=== PATIENT | male | born 1945 | race Caucasian/White ===

== ENCOUNTER 2020-01-23 10:46 | Outpatient (CLI) | payer MEDICARE | END 2020-01-23 13:42 | disposition home or self-care (01) | LOC: WOUND CARE 10:46 → EDSTATUS 11:00 → WOUND CARE 13:42 | PROVIDERS: ATTEND Nurse Practitioner | DX: I87.313 Chronic venous hypertension (idiopathic) with ulcer of bilateral lower extremity (principal); L97.812 Non-pressure chronic ulcer of other part of right lower leg with fat layer exposed; L97.821 Non-pressure chronic ulcer of other part of left lower leg limited to breakdown of skin; E11.319 Type 2 diabetes mellitus with unspecified diabetic retinopathy without macular edema; E11.36 Type 2 diabetes mellitus with diabetic cataract; G93.41 Metabolic encephalopathy; H26.9 Unspecified cataract; E03.9 Hypothyroidism, unspecified; M10.9 Gout, unspecified; M19.90 Unspecified osteoarthritis, unspecified site; I87.2 Venous insufficiency (chronic) (peripheral); F32.9 Major depressive disorder, single episode, unspecified; F41.9 Anxiety disorder, unspecified | CPT/HCPCS: 29580; G0463 ==

== ENCOUNTER 2020-01-31 09:15 | Outpatient (CLI) | payer MEDICARE ==
[2020-01-31] MEDS ORDERED: LIDOcaine 2% 5ml jelly ONE (09:45)
== END 2020-01-31 11:29 | disposition home or self-care (01) ==
LOC: WOUND CARE 09:15 → EDSTATUS 09:20 → WOUND CARE 11:29
PROVIDERS: ATTEND Nurse Practitioner
DX: I87.313 Chronic venous hypertension (idiopathic) with ulcer of bilateral lower extremity (principal); L97.812 Non-pressure chronic ulcer of other part of right lower leg with fat layer exposed; L97.821 Non-pressure chronic ulcer of other part of left lower leg limited to breakdown of skin; E11.319 Type 2 diabetes mellitus with unspecified diabetic retinopathy without macular edema; G93.41 Metabolic encephalopathy; H26.9 Unspecified cataract; E03.9 Hypothyroidism, unspecified; M10.9 Gout, unspecified; M19.90 Unspecified osteoarthritis, unspecified site; I87.2 Venous insufficiency (chronic) (peripheral); F32.9 Major depressive disorder, single episode, unspecified; F41.9 Anxiety disorder, unspecified
CPT/HCPCS: 93970; 97597

== ENCOUNTER 2020-02-06 09:42 | Outpatient (CLI) | payer MEDICARE | END 2020-02-06 11:21 | disposition home or self-care (01) | LOC: WOUND CARE 09:42 | PROVIDERS: ATTEND Nurse Practitioner Family | DX: I87.313 Chronic venous hypertension (idiopathic) with ulcer of bilateral lower extremity (principal); L97.812 Non-pressure chronic ulcer of other part of right lower leg with fat layer exposed; L97.821 Non-pressure chronic ulcer of other part of left lower leg limited to breakdown of skin; E11.319 Type 2 diabetes mellitus with unspecified diabetic retinopathy without macular edema; G93.41 Metabolic encephalopathy; E03.9 Hypothyroidism, unspecified; M10.9 Gout, unspecified; M19.90 Unspecified osteoarthritis, unspecified site; I87.2 Venous insufficiency (chronic) (peripheral); F32.9 Major depressive disorder, single episode, unspecified; F41.9 Anxiety disorder, unspecified | CPT/HCPCS: 93922; G0463 ==

== ENCOUNTER 2020-02-13 09:42 | Day surgery (SDC) | payer MEDICARE | END 2020-02-13 12:56 | disposition home or self-care (01) | LOC: WOUND CARE 09:42 | PROVIDERS: ATTEND Nurse Practitioner Family | DX: I87.313 Chronic venous hypertension (idiopathic) with ulcer of bilateral lower extremity (principal); L97.812 Non-pressure chronic ulcer of other part of right lower leg with fat layer exposed; L97.821 Non-pressure chronic ulcer of other part of left lower leg limited to breakdown of skin; E11.319 Type 2 diabetes mellitus with unspecified diabetic retinopathy without macular edema; E11.36 Type 2 diabetes mellitus with diabetic cataract; G93.41 Metabolic encephalopathy; H26.9 Unspecified cataract; E03.9 Hypothyroidism, unspecified; M10.9 Gout, unspecified; M19.90 Unspecified osteoarthritis, unspecified site; I87.2 Venous insufficiency (chronic) (peripheral); F32.9 Major depressive disorder, single episode, unspecified; F41.9 Anxiety disorder, unspecified | CPT/HCPCS: G0463 ==

== ENCOUNTER 2020-04-11 09:48 | Outpatient (CLI) | payer MEDICARE | END 2020-04-11 23:59 | disposition home or self-care (01) | LOC: RAD 09:48 | PROVIDERS: ATTEND General Practice | DX: R59.0 Localized enlarged lymph nodes (principal) | CPT/HCPCS: 76881 ==

== ENCOUNTER 2020-10-12 10:07 | Outpatient (CLI) | payer MEDICARE ==
[~2020-10-12 10:07] MED LIST: 5HYD200C PEG; ASCO-139 PO; ASPI-1264 PO; CARI-433 PO; CHOL10006 PO; DOCU250C96 PO; FLO0.4C PO; FURO40TA4 PO; LACT1CAP75 PO; LEVO50TA8 PO; MELA10TA2 PO; METH-603 PO; SENN-263 PO; VITA-268 PO; ZINC50TA67 PO
== END 2020-10-12 23:59 | disposition home or self-care (01) ==
LOC: RAD 10:07
DX: R33.9 Retention of urine, unspecified (principal)
CPT/HCPCS: 76775

== ENCOUNTER 2021-05-23 13:53 | Inpatient (IN) | payer MEDICARE ==
[~2021-05-23] VITALS: Ht 182.9 cm; Wt 89.1 kg
[~2021-05-23 13:53] MED LIST changes: -ASPI-1264 PO
[2021-05-23] MEDS ORDERED: ondansetron/PF 4mg/2ml inj IV ONE (23:40)
[2021-05-24 01:16] LABS: HEMOGLOBIN 11.7 g/dl (14.0-17.9); MEAN PLATELET VOLUME 9.2 FL (7.4-10.4); PLATELET COUNT 208 X10'3 (140-440); RED CELL DISTRIBUTION WIDTH 14.6 % (11.5-14.5)
[2021-05-24 01:19] LABS: BASOPHILS % (AUTO) 0.7 % (0-1); EOSINOPHILS # (AUTO) 0.2 X10'3 (0-0.9); EOSINOPHILS % (AUTO) 2.1 % (0-6); HEMATOCRIT 34.4 % (42.0-52.0); LYMPHOCYTES # (AUTO) 0.9 X10'3 (1.1-4.8); LYMPHOCYTES % (AUTO) 12.4 % (21-51); MEAN CORPUSCULAR HEMOGLOBIN 34.1 PG (27.0-31.0); MEAN CORPUSCULAR HGB CONC 34.1 g/dL (33.0-36.5); MEAN CORPUSCULAR VOLUME 99.8 FL (78-98); MONOCYTES # (AUTO) 0.7 X10'3 (0-0.9); MONOCYTES % (AUTO) 9.8 % (2-12); NEUTROPHILS # (AUTO) 5.4 X10'3 (1.8-7.7); RED BLOOD COUNT 3.44 X10'6 (4.70-6.10); WHITE BLOOD COUNT 7.2 X10'3 (4.5-11.0)
[2021-05-24 01:36] LABS: ALANINE AMINOTRANSFERASE 27 U/L (12-78); ALBUMIN 3.6 G/DL (3.4-5.0); ALKALINE PHOSPHATASE 124 IU/L (46-116); ANION GAP 6 (8-16); BLOOD UREA NITROGEN 28 MG/DL (7-18); BUN/CREATININE RATIO 18.9 (5.4-32.0); CHLORIDE 103 MMOL/L (99-107); CREATININE 1.48 MG/DL (0.60-1.10); POTASSIUM 3.3 MMOL/L (3.5-5.1); SODIUM 141 MMOL/L (135-145); TOTAL CARBON DIOXIDE 31.9 MMOL/L (24-32); eGFR 47 ML/MIN
[2021-05-24] MEDS ORDERED: ASPI81TA52 PO (01:37)
[2021-05-24] MEDS ORDERED: PROM25TA14 PO (01:37)
[2021-05-24] MEDS ORDERED: SAW160CA3 PO (01:37)
[2021-05-24] MEDS ORDERED: BUPR8TAB4 SL (01:37)
[2021-05-24 01:54] LABS: ALBUMIN/GLOBULIN RATIO 0.8 (1.1-1.5); ASPARTATE AMINO TRANSFERASE 30 U/L (10-37); BILIRUBIN,TOTAL 0.5 MG/DL (0.1-1.0); CALCIUM 9.4 MG/DL (8.5-10.1); GLUCOSE 106 MG/DL (70-104); TOTAL PROTEIN 8.3 G/DL (6.4-8.2)
[2021-05-24] MEDS ORDERED: acetaminophen 650mg rectal suppository RC PRN (02:00)
[2021-05-24] MEDS ORDERED: potassium Cl 20 mEq SR tablet PO PRN ×2 (02:00)
[2021-05-24] MEDS ORDERED: magnesium 2GM in 50ml NS 50 ML IV PRN (02:00)
[2021-05-24] MEDS ORDERED: mag hydrox/Alum hydrox/simeth 30ml oral suspension PO PRN (02:00)
[2021-05-24] MEDS ORDERED: ondansetron 4mg rapidly disintigrating tab PO PRN (02:00)
[2021-05-24] MEDS ORDERED: diphenhydrAMINE 50 mg/ml inj IV PRN (02:00)
[2021-05-24] MEDS ORDERED: potassium CL 10mEq/100ml bag 100 ML IV PRN (02:00)
[2021-05-24] MEDS ORDERED: magnesium hydroxide 30ml (MOM) UD suspension PO PRN (02:00)
[2021-05-24] MEDS ORDERED: bisacodyl 10mg suppository rectal RC PRN (02:00)
[2021-05-24] MEDS ORDERED: acetaminophen 325mg tablet PO PRN ×2 (02:00)
[2021-05-24] MEDS ORDERED: diphenhydrAMINE 25mg capsule PO PRN (02:00)
[2021-05-24] MEDS ORDERED: magnesium 4gm in 100ml NS 100 ML IV PRN (02:00)
[2021-05-24] MEDS ORDERED: ondansetron/PF 4mg/2ml inj IV PRN (02:00)
[2021-05-24] MEDS ORDERED: magnesium Cl slow-release 64mg tablet PO PRN (02:00)
[2021-05-24] MEDS ORDERED: normal saline 1000ml 1,000 ML IV SCH (02:00)
[2021-05-24 02:42] LABS: LIPASE < 50 U/L (73-393); MAGNESIUM 2.3 MG/DL (1.5-2.4); PHOSPHORUS 3.6 MG/DL (2.3-4.5)
[2021-05-24 02:52] LABS: PARTIAL THROMBOPLASTIN TIME 24 SECONDS (22-32)
[2021-05-24] MEDS ORDERED: hydrALAZINE 20mg/ml inj. IV PRN (03:50)
[2021-05-24] MEDS ORDERED: HYDROmorphone 1 mg/ml syringe IV ONE (03:50)
--- NOTE | 2021-05-24 03:56 | NUR ---
called dr green regarding code statues as it is listed as full code but the pt states pt is DNR. also pt bp is 200s systolic. obtained order for hydralazine. pt in 02/01 pain, admin tyloenol with no relief. obtained order for dilauded
[2021-05-24] MEDS ORDERED: pantoprazole 40mg Tablet.DR PO SCH (07:30)
[2021-05-24] MEDS ORDERED: heparin, porcine 5000 units/ml vial SQ SCH (08:00)
[2021-05-24] MEDS: BUPRENORPHINE 8MG SL TABLET SL SCH ×3 (08:00→17:00)
[2021-05-24] MEDS ORDERED: docusate sod 100mg capsule PO SCH (08:00)
[2021-05-24] MEDS ORDERED: levoTHYROXINE 25mcg tablet PO SCH (08:00)
[2021-05-24] MEDS ORDERED: aspirin 81mg, enteric-coated 1 TAB TABLET.DR PO SCH (08:00)
[2021-05-24] MEDS ORDERED: K and/or MAG REPLACEMENT MC SCH (08:00)
[2021-05-24] MEDS ORDERED: tamsulosin 0.4mg capsule PO SCH (08:00)
[2021-05-24] MEDS ORDERED: furosemide 20 MG/2 ML vial IV SCH (08:00)
[2021-05-24] MEDS ORDERED: HTP PEG SCH (08:00)
[2021-05-24] MEDS: HYDROmorphone inj. 0.5 MG/0.5 ML DISP.SYRIN IV PRN ×2 (08:36→20:48)
--- NOTE | 2021-05-24 10:13 | NUR ---
VO from dr fry for ativan for mri
[2021-05-24] MEDS ORDERED: LORazepam 2 mg/ml vial IV ONE (10:15)
[2021-05-24 12:00] VITALS: BP 170/94
[2021-05-24 19:22] VITALS: BP 197/97
[2021-05-24 20:00] VITALS: BP 143/92
[2021-05-24] MEDS ORDERED: non-formulary drug (Melatonin 1 TAB) PO SCH (21:00)
--- NOTE | 2021-05-24 23:17 | NUR ---
LATE ENTRY 1999 PT EXPRESSED CONCERN REGARDING THE FACT THAT SHE WANTED TO STAY WITH THE PATIENT HERE IN THE HOSPITAL OVERNIGHT. INFORMED CHARGE NURSE VALERIE. VALERIE TO SPEAK TO PT
--- NOTE | 2021-05-24 23:20 | NUR ---
LATE ENTRY 2100 I SPOKE TO PTS AND INFORMED HER THAT PTS OXYGEN LEVEL WAS LOW 81-82% ON R/A AND THAT PT WOULD BE PLACED ON OXYGEN 2L NC . APPLIED O2 2L NC.
--- NOTE | 2021-05-24 23:22 | NUR ---
LATE ENTRY VALERIE CHARGE NURSE SPOKE TO PTS AND INFORMED HER THAT SHE COULD NOT STAY OVERNIGHT WITH PT. STATED THAT SHE WOULD TAKE HER HOME. IF SHE COULD NOT STAY . I INFORMED THAT PTS OXYGEN LEVEL WAS LOW 81_82% ON ROOM AIR AND THAT PT NEEDED OXYGEN RIGHT NOW TO BREATHE.AND BY REMOVING IT HE MAY NOT BE ABLE TO BREATHE AND COULD . STATED THAT HER DOES NOT WISH TO LIVE AND STILL WANTED TO BE DISCHARGED. ALSO INFORMED PTS THAT I HAD GIVEN DILAUDID AND THAT WOULD CAUSE HIM TO BE DROWSY AND HE WOULD BE AT RISK FOR FALLS. STATED THE MEDICATION DOES NOT LAST LONG. CHARGE NURSE VALERIE WAS MADE AWARE OF HIS LOW O2 LEVEL AND WELL FACT PT THAT DILAUDID WAS GIVEN . CALLED DR MONTILLA AND INFORMED HIM ( DR MONTILLA STATED HE KNOWS THE PT) INFORMED DR MONTILLA THAT PT WAS PLACED ON O2 2L NC TONIGHT DUE TO LOW O2 SATURATION (81_82% ON R/A) AND THAT IS TAKING THE PT HOME BECAUSE SHE CAN NOT STAY IN THE HOSPITAL AND THAT WHEN PT IS ON R/A HE HAS LOW OXYGEN O2 SAT 81_82% ./ ALSO INFORMED DR MONTILLA THAT STATED THE PT DOESN'T WISH TO LIVE AND SHE STILL IS TAKING HIM HOME.
--- NOTE | 2021-05-24 23:33 | NUR ---
LATE ENTRY IV WAS DCD BY VALERIE POND
== END 2021-05-24 21:45 | disposition left against medical advice (07) | DRG 641 ==
LOC: ER 13:54 → UNDOADMIN 05-24 02:05 → ED HOLD 05-24 02:05 → SUR 3N 05-24 07:27 → UNDODISIN 05-24 21:45
PROVIDERS: ADMIT Family Medicine; ATTEND Family Medicine
DX: E87.6 Hypokalemia (principal); A69.20 Lyme disease, unspecified; I13.0 Hypertensive heart and chronic kidney disease with heart failure and stage 1 through stage 4 chronic kidney disease, or unspecified chronic kidney disease; I16.1 Hypertensive emergency; I50.32 Chronic diastolic (congestive) heart failure; N17.9 Acute kidney failure, unspecified; M79.604 Pain in right leg; E03.9 Hypothyroidism, unspecified; Z66 Do not resuscitate; F03.90 Unspecified dementia, unspecified severity, without behavioral disturbance, psychotic disturbance, mood disturbance, and anxiety; F31.9 Bipolar disorder, unspecified; M54.9 Dorsalgia, unspecified; M54.50 Low back pain, unspecified; W18.39XA Other fall on same level, initial encounter; R26.9 Unspecified abnormalities of gait and mobility; G89.4 Chronic pain syndrome; Z53.29 Procedure and treatment not carried out because of patient's decision for other reasons; I89.0 Lymphedema, not elsewhere classified; L30.9 Dermatitis, unspecified; L89.152 Pressure ulcer of sacral region, stage 2; M79.7 Fibromyalgia; N18.9 Chronic kidney disease, unspecified; Z86.73 Personal history of transient ischemic attack (TIA), and cerebral infarction without residual deficits; Z91.81 History of falling; Y93.89 Activity, other specified; Y92.89 Other specified places as the place of occurrence of the external cause; Y99.8 Other external cause status; Z88.8 Allergy status to other drugs, medicaments and biological substances; Z79.899 Other long term (current) drug therapy; Z79.82 Long term (current) use of aspirin
CPT/HCPCS: 36415; 72148; 80053; 83690; 83735; 83880; 84100; 85025; 85610; 85730; 93306; 99285; G0378; J0360; J1170; J1644; J1940; J2060; J7030